=== PATIENT | female | born 1985 | race Caucasian/White ===

== ENCOUNTER 2017-04-25 08:02 | Emergency (ER) | payer MEDICAID ==
[2017-04-25 08:45] LABS: BASOPHILS 0.3 % (0-2); EOSINOPHILS 1.6 % (0-7); HEMOGLOBIN 13.3 g/dL (12-16); IMMATURE GRANULOCYTES 0.3 % (0-5); LYMPHOCYTES 24.8 % (15-50); MCH 31.1 pg (26.0-34.0); MCHC 33.3 g/dL (31.0-37.0); MCV 93.5 fL (80.0-100.0); MEAN PLATELET VOLUME 9.5 fL (7.4-10.4); MONOCYTES 6.6 % (2-11); NEUTROPHILS 66.4 % (40-80); PLATELET COUNT 410 10x3/uL (130-400); RBC 4.28 10x6/uL (4.00-5.40); RDW 13.5 % (11.5-14.5); WBC 15.9 10x3/uL (4.8-10.8)
[2017-04-25 08:55] LABS: HCG SERUM POSITIVE (NEGATIVE)
[2017-04-25 09:01] LABS: ALBUMIN 3.8 g/dL (3.4-5.0); ALKALINE PHOSPHATASE 91 U/L (46-116); ALT (SGPT) 23 U/L (10-68); BILIRUBIN - TOTAL 0.21 mg/dL (0.2-1.3); CALC OSMOLALITY 276 mosm/kg (275-300); CALCIUM 9.2 mg/dL (8.5-10.1); CARBON DIOXIDE 25.4 mmol/L (21.0-32.0); CHLORIDE - SERUM 102 mmol/L (98-107); CREATININE - SERUM 0.7 mg/dL (0.6-1.3); GLUCOSE 93 mg/dL (74-106); POTASSIUM - SERUM 3.1 mmol/L (3.5-5.1); PROTEIN - SERUM 7.7 g/dL (6.4-8.2); SODIUM 139 mmol/L (136-145); UREA NITROGEN 10 mg/dL (7-18); eGFR NON AFRICAN AMERICAN > 90 mL/min (90-120)
[2017-04-25 09:23] LABS: HCG - QUANTITATIVE (MATERNAL) 7743 mIU/mL
[2017-04-25 09:47] LABS: APPEARANCE TURBID (CLEAR); BILIRUBIN NEGATIVE (NEGATIVE); COLOR BROWN (YELLOW); EPITHELIAL CELLS 0-5 /hpf (0-5); GLUCOSE NEGATIVE (NEGATIVE); KETONE NEGATIVE (NEGATIVE); LEUKOCYTE ESTERASE NEGATIVE (NEGATIVE); NITRITE NEGATIVE (NEGATIVE); PROTEIN 1+ mg/dL (NEGATIVE); RED CELLS - URINE >50 /hpf (0-5); UROBILINOGEN NORMAL (NORMAL); WHITE CELLS - URINE 0-5 /hpf (0-5)
[2017-04-25 09:48] LABS: BACTERIA MODERATE /hpf (NONE SEEN); MUCUS <1+ /lpf (NONE SEEN)
== END 2017-04-25 11:16 | disposition home or self-care (01) ==
LOC: D.ER 08:02
PROVIDERS: Emergency Medicine
DX: O03.4 Incomplete spontaneous abortion without complication (principal)

== ENCOUNTER → 2019-01-04 10:56 | Outpatient (CLI) | payer MEDICAID | END | disposition home or self-care (01) | LOC: D.CN 10:56 | DX: R55 Syncope and collapse (principal) ==

== ENCOUNTER → 2019-01-18 16:06 | Outpatient (CLI) | payer MEDICAID | END | disposition home or self-care (01) | LOC: D.LDO 16:06 | PROVIDERS: ATTEND Obstetrics & Gynecology | DX: O26.893 Other specified pregnancy related conditions, third trimester (principal); Z3A.34 34 weeks gestation of pregnancy ==

== ENCOUNTER 2019-02-14 21:22 | Outpatient (CLI) | payer MEDICAID ==
[2019-02-14 22:35] LABS: BASOPHILS 0.2 % (0-2); EOSINOPHILS 2.7 % (0-7); HEMATOCRIT 31.3 % (36.0-48.0); HEMOGLOBIN 10.1 g/dL (12-16); IMMATURE GRANULOCYTES 0.2 % (0-5); LYMPHOCYTES 22.9 % (15-50); MCHC 32.3 g/dL (31.0-37.0); MCV 89.9 fL (80.0-100.0); MEAN PLATELET VOLUME 9.9 fL (7.4-10.4); MONOCYTES 7.8 % (2-11); NEUTROPHILS 66.2 % (40-80); PLATELET COUNT 321 10x3/uL (130-400); RBC 3.48 10x6/uL (4.00-5.40); RDW 15.1 % (11.5-14.5); WBC 12.8 10x3/uL (4.8-10.8)
[2019-02-14 22:37] LABS: CREATININE - URINE 129.7 mg/dL (30-125); PRO/CRE RATIO URINE 0.3 mg/g; PROTEIN - URINE 40.9 mg/dL (0.0-11.9)
[2019-02-14 22:46] LABS: ALBUMIN 2.2 g/dL (3.4-5.0); ALKALINE PHOSPHATASE 104 U/L (46-116); ALT (SGPT) 13 U/L (10-68); BILIRUBIN - TOTAL 0.16 mg/dL (0.2-1.3); CALC OSMOLALITY 269 mosm/kg (275-300); CALCIUM 8.4 mg/dL (8.5-10.1); CARBON DIOXIDE 21.6 mmol/L (21.0-32.0); CHLORIDE - SERUM 104 mmol/L (98-107); CREATININE - SERUM 0.5 mg/dL (0.6-1.3); GLUCOSE 116 mg/dL (74-106); LDH 200 U/L (81-234); POTASSIUM - SERUM 3.7 mmol/L (3.5-5.1); PROTEIN - SERUM 6.2 g/dL (6.4-8.2); SODIUM 135 mmol/L (136-145); UREA NITROGEN 9 mg/dL (7-18); eGFR NON AFRICAN AMERICAN > 90 mL/min (90-120)
[2019-02-16 14:11] LABS: PROTEIN - URINE 11.1 mg/dL (0.0-11.9)
== END 2019-02-14 23:10 ==
LOC: D.LABREF 21:22
PROVIDERS: ATTEND Obstetrics & Gynecology
DX: O16.3 Unspecified maternal hypertension, third trimester (principal); Z3A.37 37 weeks gestation of pregnancy

== ENCOUNTER 2019-02-27 05:50 | Inpatient (IN) | payer MEDICAID ==
[2019-02-27] VITALS (18 sets, daily range): BP systolic 133–166; BP diastolic 65–88; Ht 162.6 cm; Wt 112.0 kg
[~2019-02-27] VITALS: Ht 162.6 cm; Wt 112.0 kg
[2019-02-27 06:35] LABS: HEMATOCRIT 31.7 % (36.0-48.0); HEMOGLOBIN 10.5 g/dL (12-16); MCH 29.1 pg (26.0-34.0); MCHC 33.1 g/dL (31.0-37.0); MCV 87.8 fL (80.0-100.0); RBC 3.61 10x6/uL (4.00-5.40); RDW 15.3 % (11.5-14.5); WBC 14.5 10x3/uL (4.8-10.8)
[2019-02-27 10:29] LABS: BASOPHILS 0.2 % (0-2); EOSINOPHILS 1.1 % (0-7); HEMATOCRIT 33.2 % (36.0-48.0); IMMATURE GRANULOCYTES 0.4 % (0-5); MCHC 33.1 g/dL (31.0-37.0); MCV 87.6 fL (80.0-100.0); MONOCYTES 3.5 % (2-11); NEUTROPHILS 82.8 % (40-80); PLATELET COUNT 304 10x3/uL (130-400); RBC 3.79 10x6/uL (4.00-5.40); RDW 15.2 % (11.5-14.5); WBC 16.1 10x3/uL (4.8-10.8)
[2019-02-27 10:41] LABS: ALBUMIN 2.3 g/dL (3.4-5.0); ALKALINE PHOSPHATASE 109 U/L (46-116); ALT (SGPT) 15 U/L (10-68); BILIRUBIN - TOTAL 0.26 mg/dL (0.2-1.3); CALC OSMOLALITY 274 mosm/kg (275-300); CARBON DIOXIDE 22.2 mmol/L (21.0-32.0); CHLORIDE - SERUM 106 mmol/L (98-107); CREATININE - SERUM 0.6 mg/dL (0.6-1.3); GLUCOSE 95 mg/dL (74-106); LDH 168 U/L (81-234); POTASSIUM - SERUM 3.8 mmol/L (3.5-5.1); PROTEIN - SERUM 6.6 g/dL (6.4-8.2); SODIUM 138 mmol/L (136-145); UREA NITROGEN 9 mg/dL (7-18); URIC ACID 5.4 mg/dL (2.6-7.2); eGFR NON AFRICAN AMERICAN > 90 mL/min (90-120)
[2019-02-27 10:46] LABS: CREATININE - URINE 70.3 mg/dL (30-125); PRO/CRE RATIO URINE 0.4 mg/g; PROTEIN - URINE 30.4 mg/dL (0.0-11.9)
[2019-02-28] VITALS (8 sets, daily range): BP systolic 112–145; BP diastolic 60–80
[2019-02-28 07:21] LABS: HEMATOCRIT 28.4 % (36.0-48.0); HEMOGLOBIN 9.1 g/dL (12-16); MCH 28.5 pg (26.0-34.0); MEAN PLATELET VOLUME 10.3 fL (7.4-10.4); PLATELET COUNT 325 10x3/uL (130-400); RBC 3.19 10x6/uL (4.00-5.40); RDW 15.4 % (11.5-14.5); WBC 21.6 10x3/uL (4.8-10.8)
[2019-02-28 07:51] LABS: LYMPHOCYTES 5 % (15-50); MONOCYTES 3 % (2-11); NEUTROPHILS 88 % (40-80); PLATELET ESTIMATE NORMAL; PLATELET MORPHOLOGY PLT CLUMPS PRESENT
[2019-03-01 00:38] VITALS: BP 145/72
[2019-03-01 02:38] VITALS: BP 141/67
[2019-03-01 05:03] VITALS: BP 118/59
[2019-03-01 07:52] VITALS: BP 129/77
[2019-03-01] MEDS ORDERED: NORMODYNE / TR200 MG PO (08:18)
[2019-03-01] MEDS ORDERED: PERCOCET 5-3251 TAB PO (08:19)
== END 2019-03-01 12:00 | disposition home or self-care (01) | DRG 788 ==
LOC: D.LD 05:50
PROVIDERS: ADMIT Obstetrics & Gynecology; ATTEND Obstetrics & Gynecology
PROC: 10D00Z1 Extraction of Products of Conception, Low, Open Approach (ICD-10-PCS; principal; 2019-02-27 07:30)
DX: O34.211 Maternal care for low transverse scar from previous cesarean delivery (principal); Z3A.40 40 weeks gestation of pregnancy; Z37.0 Single live birth; O14.95 Unspecified pre-eclampsia, complicating the puerperium; O99.02 Anemia complicating childbirth; O99.334 Smoking (tobacco) complicating childbirth; O99.214 Obesity complicating childbirth